=== PATIENT | female | born 1960 | race Caucasian/White ===

== ENCOUNTER 2018-05-16 06:00 | Outpatient (CLI) | payer OTHER ==
[~2018-05-16 06:00] MED LIST: AMBIEN10 MG PO; CATAFLAN PO; HUMULIN 70100 UNIT/2; LANTUS; LOPID PO; NORVASC10 MG PO; WELLBUTRIN SR200 MG PO; [UNRECOGNIZED DRUG - OTHER] PO
== END 2018-05-16 06:05 | disposition home or self-care (01) ==
LOC: EKG 06:00 → LAB 06:58 → CIR.AMB 06:58 → EDSTATUS 07:45 → CIR.AMB 22:00
DX: S82.852A Displaced trimalleolar fracture of left lower leg, initial encounter for closed fracture (principal); Z01.810 Encounter for preprocedural cardiovascular examination; I10 Essential (primary) hypertension

== ENCOUNTER 2018-05-23 09:27 | Day surgery (SDC) | payer OTHER ==
[2018-05-23] MEDS ORDERED: ALEVE220 M1 PO (18:01)
[2018-05-23] MEDS ORDERED: DUI500 PO (18:01)
[2018-05-23] MEDS ORDERED: PERCOCET 5-3251 EACH PO (18:01)
== END 2018-05-23 20:10 | disposition home or self-care (01) ==
LOC: CIR.AMB 09:27
DX: S82.852A Displaced trimalleolar fracture of left lower leg, initial encounter for closed fracture (principal)